=== PATIENT | male | born 1995 | race Caucasian/White ===

== ENCOUNTER 2019-09-25 02:50 | Emergency (ER) | payer OTHER ==
[~2019-09-25] VITALS: Ht 182.9 cm; Wt 100.0 kg
[2019-09-25 03:01] VITALS: Ht 182.9 cm; Wt 100.0 kg
[2019-09-25 05:15] VITALS: BP 125/83
== END 2019-09-25 05:15 | disposition home or self-care (01) ==
LOC: ED 02:50
DX: S09.8XXA Other specified injuries of head, initial encounter (principal); W01.198A Fall on same level from slipping, tripping and stumbling with subsequent striking against other object, initial encounter; Y93.89 Activity, other specified; Y92.89 Other specified places as the place of occurrence of the external cause; Y99.8 Other external cause status